=== PATIENT | female | born 1995 | race Caucasian/White ===

== ENCOUNTER 2017-01-30 06:24 | Emergency (ER) | payer MEDICAID ==
[~2017-01-30] VITALS: Ht 160 cm; Wt 67.4 kg
[~2017-01-30 06:24] MED LIST: HYDR-3240 PO; METO10TA82 PO; NONE PER PT; ONDA4TAB10 PO; ONDA4TAB7 PO; OXYC-302 PO; TYLENOL PRN
[2017-01-30] MEDS ORDERED: ONDANSETRON 2MG/ML, 2ML IVPush ONE (07:00)
[2017-01-30] MEDS ORDERED: SODIUM CHLORIDE FLUSH 10ML SYR IVF ONE (07:00)
[2017-01-30] MEDS ORDERED: ONDANSETRON 2MG/ML, 2ML ONE (07:02)
[2017-01-30] MEDS ORDERED: MORPHINE SULFATE 4 MG/ML, 1ML ONE ×2 (07:02→07:51)
[2017-01-30] MEDS: MORPHINE SULFATE 4 MG/ML, 1ML IVPush PRN ×2 (07:04→07:52)
[2017-01-30 07:31] LABS: HEMOGLOBIN 13.2 g/dL (11.7-16.4)
[2017-01-30 07:43] LABS: BLOOD UREA NITROGEN 12 mg/dL (7-18)
[2017-01-30] MEDS ORDERED: SODIUM CHLORIDE 0.9% 1,000ML IVBOLUS ONE (08:00)
[2017-01-30 09:48] VITALS: BP 105/62
== END 2017-01-30 09:51 | disposition home or self-care (01) ==
LOC: ED 07:30
DX: M54.5 Low back pain (principal); R10.2 Pelvic and perineal pain; R10.30 Lower abdominal pain, unspecified; R10.31 Right lower quadrant pain
CPT/HCPCS: 36415; 74176; 80048; 81003; 82040; 84703; 85025; 96374; 96376

== ENCOUNTER 2017-12-01 12:57 | Emergency (ER) | payer MEDICAID ==
[~2017-12-01] VITALS: Ht 160 cm; Wt 64.0 kg
[2017-12-01 13:15] VITALS: BP 111/70
[2017-12-01 14:09] LABS: ALANINE AMINOTRANSFERASE 15 U/L (12-78); ALBUMIN 4.2 g/dL (3.4-5.0); ANION GAP 9 mmol/L (5-15); CALCIUM 9.2 mg/dL (8.5-10.1); CHLORIDE 108 mmol/L (98-107); CREATININE 0.83 mg/dL (0.55-1.02)
[2017-12-01 14:14] LABS: ALKALINE PHOSPHATASE 60 U/L (45-117); BILIRUBIN,TOTAL 0.7 mg/dL (0.2-1.0); TOTAL PROTEIN 8.3 g/dL (6.4-8.2)
[2017-12-01 14:16] LABS: BASOPHILS # (AUTO) 0.03 x10^3/uL (0-0.1); BASOPHILS % (AUTO) 1 % (0-1); EOSINOPHILS # (AUTO) 0.05 x10^3/uL (0-0.4); EOSINOPHILS % (AUTO) 1 % (1-7); LYMPHOCYTES # (AUTO) 2.73 x10^3/uL (1-3.4); LYMPHOCYTES % (AUTO) 36 % (22-44); MD NO; MEAN CORPUSCULAR HEMOGLOBIN 29.3 pg (27.0-34.8); MEAN CORPUSCULAR HGB CONC 33.6 g/dL (32.4-35.8); MEAN CORPUSCULAR VOLUME 87.1 fL (80-100); MEAN PLATELET VOLUME 8.7 fL (7.4-10.4); MONOCYTES # (AUTO) 0.49 x10^3/uL (0.2-0.8); MONOCYTES % (AUTO) 7 % (2-9); NEUTROPHILS % (AUTO) 57 % (42-75); PLATELET COUNT 268 x10^3/uL (130-400); RED BLOOD COUNT 4.56 x10^6/uL (3.82-5.3)
== END 2017-12-01 16:33 | disposition left against medical advice (07) ==
LOC: ED 16:27
DX: R10.13 Epigastric pain (principal); Z85.43 Personal history of malignant neoplasm of ovary
CPT/HCPCS: 36415; 74022; 80053; 83690; 84703; 85025; 99285

== ENCOUNTER 2018-07-30 21:52 | Emergency (ER) | payer MEDICAID ==
[~2018-07-30] VITALS: Ht 157.5 cm; Wt 63.4 kg
[2018-07-30 21:54] VITALS: BP 106/73
[2018-07-30] MEDS ORDERED: PROMETHAZINE 25 MG/ML, 1ML ONE (22:17)
[2018-07-30] MEDS ORDERED: PROMETHAZINE 25 MG/ML, 1ML IM ONE (22:30)
[2018-07-30 22:36] LABS: BASOPHILS # (AUTO) 0.03 x10^3/uL (0-0.1); BASOPHILS % (AUTO) 0 % (0-1); EOSINOPHILS % (AUTO) 0 % (1-7); LYMPHOCYTES # (AUTO) 2.37 x10^3/uL (1-3.4); LYMPHOCYTES % (AUTO) 22 % (22-44); MD NO; MEAN CORPUSCULAR HEMOGLOBIN 29.5 pg (27.0-34.8); MEAN CORPUSCULAR HGB CONC 33.5 g/dL (32.4-35.8); MEAN CORPUSCULAR VOLUME 88.1 fL (80-100); MEAN PLATELET VOLUME 7.9 fL (7.4-10.4); MONOCYTES % (AUTO) 6 % (2-9); NEUTROPHILS # (AUTO) 7.57 x10^3/uL (1.8-6.8); NEUTROPHILS % (AUTO) 72 % (42-75); PLATELET COUNT 287 x10^3/uL (130-400); RED BLOOD COUNT 4.62 x10^6/uL (3.82-5.3); RED CELL DISTRIBUTION WIDTH 13.6 % (9.6-15.2)
[2018-07-30 22:47] LABS: ANION GAP 6 mmol/L (5-15); CALCIUM 9.4 mg/dL (8.5-10.1); CHLORIDE 108 mmol/L (98-107); CREATININE 0.69 mg/dL (0.55-1.02)
[2018-07-30 23:23] LABS: MICROSCOPIC INDICATED
[2018-07-30 23:24] LABS: HCG UR SG 1.024 (1.003-1.030)
[2018-07-30 23:43] LABS: CULTURE INDICATED? NO
== END 2018-07-30 23:15 | disposition home or self-care (01) ==
LOC: ED 23:07
DX: E86.0 Dehydration (principal); R11.2 Nausea with vomiting, unspecified; Z90.49 Acquired absence of other specified parts of digestive tract; Z90.710 Acquired absence of both cervix and uterus
CPT/HCPCS: 36415; 80048; 81001; 81025; 83735; 85025; 96372; 99284; J2550